=== PATIENT | female | born 1970 | race Two or more races ===

== ENCOUNTER 2022-10-30 19:08 | Emergency (ER) | payer OTHER ==
[~2022-10-30] VITALS: Ht 162.6 cm; Wt 90.9 kg
[~2022-10-30 19:08] MED LIST: AMLO-257 PO; ELTR50TA PO; GLIM2 PO; LEVO88TA7 PO; LISI20TA24 PO; METF-1211 PO; METO-416 PO; [UNRECOGNIZED DRUG - REMARK] PO
[2022-10-30] MEDS ORDERED: OXYMETAZOLINE HCL 0.05% 15 ML NASAL SPRAY NASAL ONE (19:45)
[2022-10-30 20:06] LABS: BASOPHILS % (AUTO) 0.7 % (0.0-2.0); EOSINOPHILS % (AUTO) 1.7 % (1.0-6.0); HEMATOCRIT 38.9 % (36-46); HEMOGLOBIN 12.8 g/dL (12.0-16.0); LYMPHOCYTES # (AUTO) 1.1 K/uL (1.0-4.8); LYMPHOCYTES % (AUTO) 20.2 % (22.0-44.0); MEAN CORPUSCULAR HEMOGLOBIN 30.6 pg (26.0-34.0); MEAN CORPUSCULAR HGB CONC 32.9 G/dL (31.0-37.0); MEAN CORPUSCULAR VOLUME 93 fL (80-100); MONOCYTES # (AUTO) 0.5 K/uL (0.1-1.0); MONOCYTES % (AUTO) 9.4 % (2.0-9.0); NEUTROPHILS # (AUTO) 3.6 K/uL (1.8-7.7); PLATELET COUNT (AUTO) 178 K/uL (150-450); RED CELL DISTRIBUTION WIDTH 14.1 % (11.5-14.5)
[2022-10-30 20:15] VITALS: BP 133/86
[2022-10-30 20:29] LABS: ANION GAP 6 mmol/L (8-16); CALCIUM, TOTAL 9.5 mg/dL (8.8-10.5); CARBON DIOXIDE 30 mmol/L (22-29); CHLORIDE 105 mmol/L (98-107); CREATININE 0.78 mg/dL (0.60-1.30); GLOMERULAR FILTR. RATE CALC > 60 mL/min (>60); GLUCOSE,RANDOM 110 mg/dL (70-110); POTASSIUM 4.1 mmol/L (3.5-5.1); SODIUM SERUM 141 mmol/L (136-145); UREA NITROGEN, BLOOD 16 mg/dL (7-18)
[2022-10-30 20:34] LABS: ALANINE AMINOTRANSFERASE 36 U/L (12-78); ALBUMIN 3.7 g/dL (3.4-5.0); ALKALINE PHOSPHATASE 94 U/L (46-116); ASPARTATE AMINOTRANSFERASE 33 U/L (15-37); BILIRUBIN,TOTAL 0.3 mg/dL (0.1-1.0); TOTAL PROTEIN, SERUM 7.7 g/dL (6.4-8.2)
== END 2022-10-30 21:27 | disposition home or self-care (01) ==
LOC: EMS 19:09
DX: R04.0 Epistaxis (principal); E11.9 Type 2 diabetes mellitus without complications; E78.00 Pure hypercholesterolemia, unspecified; I10 Essential (primary) hypertension; E03.9 Hypothyroidism, unspecified; Z90.710 Acquired absence of both cervix and uterus; Z98.890 Other specified postprocedural states
CPT/HCPCS: 80053; 82962; 85025; 99283

== ENCOUNTER 2023-01-09 07:41 | Emergency (ER) | payer OTHER ==
[~2023-01-09] VITALS: Ht 157.5 cm; Wt 98.2 kg
[2023-01-09 07:53] VITALS: TEMP 97.7
[2023-01-09] MEDS ORDERED: GABA-533 PO (07:54)
[2023-01-09] MEDS ORDERED: ELTR25TA PO (07:54)
[2023-01-09] MEDS ORDERED: ACET-66 PO (07:54)
[2023-01-09] MEDS ORDERED: AMIT10TA6 PO (07:54)
[2023-01-09] MEDS ORDERED: GABA300T26 PO (07:54)
[2023-01-09] MEDS ORDERED: CEPH500C3 PO (07:54)
[2023-01-09] MEDS ORDERED: ATOR40TA71 PO (07:54)
[2023-01-09] MEDS ORDERED: METO50 PO (07:54)
[2023-01-09] MEDS ORDERED: AMLO10TA55 PO (07:54)
[2023-01-09] MEDS ORDERED: LIDO1ADH63 TP (07:54)
[2023-01-09] MEDS ORDERED: LISI40TA9 PO (07:54)
[2023-01-09] MEDS ORDERED: TIZA-211 PO (07:54)
[2023-01-09] MEDS ORDERED: DIPH-1243 PO (07:54)
[2023-01-09] MEDS ORDERED: [UNRECOGNIZED DRUG - CODE] TP (07:54)
[2023-01-09] MEDS ORDERED: TRIA15CR49 TP (07:54)
[2023-01-09 08:15] LABS: BASOPHILS % (AUTO) 0.6 % (0.0-2.0); EOSINOPHILS % (AUTO) 1.2 % (1.0-6.0); HEMATOCRIT 41.4 % (36-46); HEMOGLOBIN 13.5 g/dL (12.0-16.0); LYMPHOCYTES # (AUTO) 0.6 K/uL (1.0-4.8); LYMPHOCYTES % (AUTO) 12.3 % (22.0-44.0); MEAN CORPUSCULAR HEMOGLOBIN 29.7 pg (26.0-34.0); MEAN CORPUSCULAR HGB CONC 32.6 G/dL (31.0-37.0); MEAN CORPUSCULAR VOLUME 91 fL (80-100); MONOCYTES # (AUTO) 0.4 K/uL (0.1-1.0); MONOCYTES % (AUTO) 7.2 % (2.0-9.0); NEUTROPHILS # (AUTO) 4.1 K/uL (1.8-7.7); NEUTROPHILS % (AUTO) 78.7 % (40.0-70.0); PLATELET COUNT (AUTO) 151 K/uL (150-450); RED BLOOD CELL COUNT(AUTO) 4.54 MIL/uL (4.00-5.20); RED CELL DISTRIBUTION WIDTH 14.9 % (11.5-14.5)
[2023-01-09] MEDS ORDERED: ACETAMINOPHEN 500 MG TABLET PO ONE (08:15)
[2023-01-09] MEDS ORDERED: MAG HYDROX/AL HYDROX/SIMETH 30 ML SUSP UDCUP PO ONE (08:15)
[2023-01-09] MEDS ORDERED: FAMOTIDINE 20 MG TABLET PO ONE (08:15)
[2023-01-09 08:25] LABS: ANION GAP 4 mmol/L (8-16); CALCIUM, TOTAL 8.7 mg/dL (8.8-10.5); CARBON DIOXIDE 29 mmol/L (22-29); CHLORIDE 103 mmol/L (98-107); CREATININE 0.62 mg/dL (0.60-1.30); GLOMERULAR FILTR. RATE CALC > 60 mL/min (>60); GLUCOSE,RANDOM 125 mg/dL (70-110); SODIUM SERUM 136 mmol/L (136-145)
[2023-01-09 08:34] LABS: B-TYPE NATRIURETIC PEPTIDE 46 pg/mL (0-100)
[2023-01-09 08:49] LABS: ALANINE AMINOTRANSFERASE 41 U/L (12-78); ALBUMIN 3.5 g/dL (3.4-5.0); ALKALINE PHOSPHATASE 94 U/L (46-116); ASPARTATE AMINOTRANSFERASE 31 U/L (15-37); BILIRUBIN,TOTAL 0.5 mg/dL (0.1-1.0); CREATINE KINASE, TOTAL ONLY 110 U/L (26-192); TOTAL PROTEIN, SERUM 7.8 g/dL (6.4-8.2)
[2023-01-09 10:21] VITALS: BP 121/73; PULSE 68; RESP 16
== END 2023-01-09 11:09 | disposition home or self-care (01) ==
LOC: EMS 07:42
DX: R07.2 Precordial pain (principal); E11.9 Type 2 diabetes mellitus without complications; E78.00 Pure hypercholesterolemia, unspecified; I10 Essential (primary) hypertension; E03.9 Hypothyroidism, unspecified; L40.9 Psoriasis, unspecified; Z90.710 Acquired absence of both cervix and uterus
CPT/HCPCS: 71045; 80053; 82550; 82962; 83880; 84484; 85025; 93005; 99285; 36415-L1; 36415-TC